=== PATIENT | male | born 1970 ===

== ENCOUNTER 2021-02-06 07:39 | Inpatient (IN) ==
[2021-02-06] MEDS ORDERED: Norepinephrine 16MCG/ML IVPRE 4,000 MCG/250 ML BAG IV ONE (07:42)
[2021-02-06] MEDS ORDERED: Morphine 2 MG/ML SYRINGE IV ONE (07:44)
[2021-02-06] MEDS ORDERED: Morphine 2 MG/ML SYRINGE ONE (07:44)
[2021-02-06] MEDS ORDERED: NS 0.9% 1000 ml BAG 1,000 ML IV ONE (07:44)
[2021-02-06] MEDS ORDERED: Heparin - STEMI 5,000 UNITS/ML 1 ml VIAL IV ONE ×2 (07:44→07:45)
[2021-02-06] MEDS ORDERED: Heparin DRIP 25,000 UNITS BAG 25,000 UNITS/500 ML BAG ONE (07:45)
[2021-02-06] MEDS ORDERED: fentaNYL 100 mcg/2 ml 50 MCG/ML VIAL ONE ×2 (07:50→10:17)
[2021-02-06] MEDS ORDERED: Heparin 2 UNITS/ML 1000 mls IV ONE (07:50)
[2021-02-06] MEDS ORDERED: nitroGLYCERIN DRIP 100 MCG/ML 250 ML BTL ONE (07:50)
[2021-02-06] MEDS ORDERED: Heparin 1,000 UNIT/ML 10 ml (10,000 UNITS) CATHLAB/DIALYSIS ONE ×2 (07:50)
[2021-02-06] MEDS ORDERED: Lidocaine 1% VIAL 10 MG/ML VIAL ONE (07:50)
[2021-02-06] MEDS ORDERED: niCARdipine 0.1MG/ML 200 ML IVPREMIX IV ONE (07:50)
[2021-02-06] MEDS ORDERED: Midazolam 5 mg/5 ml VIAL 1 mg/ml 5 ml VIAL (5 mg) ONE (07:50)
[2021-02-06] MEDS ORDERED: Iohexol 350 (CONTRAST) 200 ML MDV IV ONE (07:50)
[2021-02-06] MEDS ORDERED: Morphine 4 MG/ML VIAL (1 ml) IV ONE (08:00)
[2021-02-06] MEDS ORDERED: Heparin 5000 UNITS/ML 1 mL VIAL IV SCH (08:00)
[2021-02-06] MEDS ORDERED: Norepinephrine 16MCG/ML IVPRE 4,000 MCG/250 ML BAG IV SCH (08:00)
[2021-02-06] MEDS ORDERED: Heparin DRIP 25,000 UNITS BAG 25,000 UNITS/500 ML BAG IV SCH (08:00)
[2021-02-06 08:07] LABS: ABS Monocytes 0.5 10^3/ul (0-0.8); ABS Neutrophils 8.7 10^3/ul (1.5-7.7); Eosinophil % 0.1 %; Hematocrit 30 % (42-52); Hemoglobin 9.9 g/dL (14.0-18.0); Mean Corpuscular HGB Conc 33 g/dL (31-36); Mean Corpuscular Hemoglobin 25 pg (27-31); Mean Corpuscular Volume 77 fL (80-94); Platelet Count 210 10^3/uL (150-450); Red Blood Count 3.93 10^6 /uL (4.18-5.48); Red Cell Distribution Width 14 % (10-15); White Blood Count 11.3 10^3/uL (3.5-10.8)
[2021-02-06 08:26] LABS: Rapid COVID-19 Molecular Undetected (Undetected)
[2021-02-06 08:27] LABS: ALT 22 U/L (7-52); AST 26 U/L (13-39); Albumin 2.9 g/dL (3.2-5.2); Albumin/Globulin Ratio 1.3 (1-3); Alkaline Phosphatase 38 U/L (35-149); Anion Gap 7 mmol/L (2-11); Blood Urea Nitrogen 13 mg/dL (6-24); CO2 Carbon Dioxide 21 mmol/L (22-32); Calcium 6.9 mg/dL (8.6-10.3); Chloride 110 mmol/L (101-111); Globulin 2.3 g/dL (2-4); Glucose 235 mg/dL (70-100); LDL Cholesterol Direct 83 mg/dL; Magnesium 1.1 mg/dL (1.9-2.7); Potassium 3.4 mmol/L (3.5-5.0); Sodium 138 mmol/L (135-145); Total Protein 5.2 g/dL (6.4-8.9); eGFR CKD-EPI 106.9 (>60)
[2021-02-06 08:35] LABS: Troponin I 0.59 ng/mL (<0.03)
[2021-02-06 09:05] LABS: INR 1.14 (0.86-1.15)
[2021-02-06 09:07] LABS: Activated Partial Thrombo Time 159.4 seconds (26.0-38.0)
[2021-02-06] MEDS ORDERED: Heparin 2 UNITS/ML 1000 mls 1,000 ML IV ONE (09:39)
[2021-02-06 09:46] LABS: Venous Bicarbonate HCO3 20.9 mmol/L (24-28)
[2021-02-06 09:47] LABS: PCO2 Arterial 41 mmHg (35-45); PO2 Arterial 73 mmHg (80-100)
[2021-02-06] MEDS ORDERED: Ondansetron 4 mg VIAL 2 MG/ML 2 ml VIAL IV PRN (10:32)
[2021-02-06 11:10] LABS: Cholesterol 125 mg/dL; HDL Cholesterol 27.7 mg/dL; LDL Cholesterol 76 mg/dL; Triglycerides 107 mg/dL
[2021-02-06] MEDS ORDERED: Eptifibatide IV (Load dose) 2 MG/ML 10 ml VIAL ONE ×2 (11:41)
[2021-02-06 12:33] LABS: Urine Appearance Clear; Urine Bilirubin Negative (Negative); Urine Blood 2+ (Negative); Urine Color Straw; Urine Glucose 3+(>=500 mg/dL) (Negative); Urine Ketones Trace (Negative); Urine Nitrite Negative (Negative); Urine Protein Negative (Negative); Urine Urobilinogen Negative (Negative)
[2021-02-06 12:51] LABS: Urine Bacteria Absent (Absent); Urine Red Blood Cell 2+(6-10/hpf) (Absent); Urine White Blood Cell Absent (Absent)
[2021-02-06 12:53] LABS: Urine Specific Gravity > 1.060 (1.002-1.030)
[2021-02-06 21:24] LABS: ABS Lymphocytes 2.1 10^3/ul (1.0-4.8); ABS Monocytes 1.2 10^3/ul (0-0.8); ABS Neutrophils 8.8 10^3/ul (1.5-7.7); Hematocrit 34 % (42-52); Lymphocyte % 17.1 %; Mean Corpuscular HGB Conc 33 g/dL (31-36); Mean Corpuscular Hemoglobin 25 pg (27-31); Mean Corpuscular Volume 76 fL (80-94); Mean Platelet Volume 9.1 fL (7.4-10.4); Platelet Count 191 10^3/uL (150-450); Red Cell Distribution Width 14 % (10-15)
[2021-02-06 21:39] LABS: Anion Gap 9 mmol/L (2-11); Blood Urea Nitrogen 21 mg/dL (6-24); CO2 Carbon Dioxide 23 mmol/L (22-32); Calcium 7.9 mg/dL (8.6-10.3); Chloride 101 mmol/L (101-111); Glucose 238 mg/dL (70-100); Potassium 4.2 mmol/L (3.5-5.0); Sodium 133 mmol/L (135-145); eGFR CKD-EPI 76.4 (>60)
[2021-02-06] MEDS: Al Hydrox/Mg Hydrox/Simet LIQ 30 ML UDC PO PRN (22:03)
[2021-02-06 22:08] LABS: Troponin I > 79.00 ng/mL (<0.03)
[2021-02-07] MEDS: Al Hydrox/Mg Hydrox/Simet LIQ 30 ML UDC PO PRN (03:28)
[2021-02-07 05:49] LABS: ABS Lymphocytes 2.2 10^3/ul (1.0-4.8); ABS Monocytes 1.4 10^3/ul (0-0.8); ABS Neutrophils 8.5 10^3/ul (1.5-7.7); Hematocrit 31 % (42-52); Hemoglobin 10.3 g/dL (14.0-18.0); Lymphocyte % 18.4 %; Mean Corpuscular HGB Conc 33 g/dL (31-36); Mean Corpuscular Hemoglobin 25 pg (27-31); Mean Corpuscular Volume 76 fL (80-94); Mean Platelet Volume 9.1 fL (7.4-10.4); Platelet Count 171 10^3/uL (150-450); Red Blood Count 4.07 10^6 /uL (4.18-5.48); Red Cell Distribution Width 14 % (10-15); White Blood Count 12.1 10^3/uL (3.5-10.8)
[2021-02-07 06:31] LABS: ALT 80 U/L (7-52); AST 275 U/L (13-39); Albumin 3.2 g/dL (3.2-5.2); Albumin/Globulin Ratio 1.1 (1-3); Alkaline Phosphatase 45 U/L (35-149); Anion Gap 6 mmol/L (2-11); Blood Urea Nitrogen 23 mg/dL (6-24); CO2 Carbon Dioxide 26 mmol/L (22-32); Calcium 8.1 mg/dL (8.6-10.3); Chloride 100 mmol/L (101-111); Globulin 2.9 g/dL (2-4); Glucose 259 mg/dL (70-100); Potassium 3.9 mmol/L (3.5-5.0); Sodium 132 mmol/L (135-145); Total Protein 6.1 g/dL (6.4-8.9); eGFR CKD-EPI 76.4 (>60)
[2021-02-07 07:27] LABS: Magnesium 1.7 mg/dL (1.9-2.7)
[2021-02-07] MEDS ORDERED: Potassium Chlor 20 meq TAB.ER PO ONE (07:30)
[2021-02-07] MEDS ORDERED: Magnesium Sulfate 2 gm BAG 2 GM/50 ML BAG IVPB ONE (07:30)
[2021-02-07] MEDS ORDERED: Dextrose 50% Syringe 50 ml 25 GM/50 ML SYRINGE IV PUSH PRN ×2 (08:36→18:17)
[2021-02-07] MEDS ORDERED: Midazolam 2 mg/2 ml VIAL 1 mg/ml 2 ml VIAL (2 mg) ONE (11:03)
[2021-02-07] MEDS ORDERED: fentaNYL 100 mcg/2 ml 50 MCG/ML VIAL ONE (11:03)
[2021-02-07 11:54] LABS: Troponin I > 80.00 ng/mL (<0.03)
[2021-02-07] MEDS: Insulin GLARGINE 100 un/ml 10 ml VIAL SUBCUT SCH ×2 (13:21)
[2021-02-07 18:15] LABS: Hematocrit 33 % (42-52); Hemoglobin 11.1 g/dL (14.0-18.0); Mean Corpuscular HGB Conc 34 g/dL (31-36); Mean Corpuscular Hemoglobin 26 pg (27-31); Mean Corpuscular Volume 76 fL (80-94); Mean Platelet Volume 9.3 fL (7.4-10.4); Platelet Count 164 10^3/uL (150-450); Red Blood Count 4.28 10^6 /uL (4.18-5.48); Red Cell Distribution Width 14 % (10-15)
[2021-02-07] MEDS ORDERED: Piperacillin/Tazobac ADVAN 3.375 GM in NS 0.9% 100 ml BAG 100 ML IV ONE (18:30)
[2021-02-07 18:57] LABS: Albumin 3.4 g/dL (3.2-5.2); Albumin/Globulin Ratio 1.1 (1-3); Calcium 8.1 mg/dL (8.6-10.3); Direct Bilirubin 0.2 mg/dL (0.03-0.18); Indirect Bilirubin 0.6 mg/dL (0.3-1.0); Potassium 4.3 mmol/L (3.5-5.0); Total Bilirubin 0.8 mg/dL (0.2-1.0); Total Protein 6.4 g/dL (6.4-8.9)
[2021-02-07] MEDS ORDERED: Zosyn per Pharmacy NOTE FOLLOW UP SCH (19:00)
[2021-02-07] MEDS: Enoxaparin 40 MG/0.4 ML SYR SUBCUT SCH (19:53)
[2021-02-07] MEDS ORDERED: Diltiazem IV push/loading dose 5 MG/ML 5 ML vial (25 mg) IV SLOW PU ONE (23:12)
[2021-02-08] MEDS ORDERED: Diltiazem IV push/loading dose 5 MG/ML 5 ML vial (25 mg) IV SLOW PU ONE (00:24)
[2021-02-08] MEDS: ZOSYN 3.375 GM Q8H per EXTENDED INFUSION IV SCH ×4 (00:41→23:59)
[2021-02-08 05:51] LABS: Hematocrit 29 % (42-52); Mean Corpuscular HGB Conc 34 g/dL (31-36); Mean Corpuscular Hemoglobin 26 pg (27-31); Mean Corpuscular Volume 76 fL (80-94); Mean Platelet Volume 9.4 fL (7.4-10.4); Platelet Count 152 10^3/uL (150-450); Red Blood Count 3.85 10^6 /uL (4.18-5.48); Red Cell Distribution Width 14 % (10-15); White Blood Count 9.4 10^3/uL (3.5-10.8)
[2021-02-08 06:09] LABS: Calcium 7.9 mg/dL (8.6-10.3); Magnesium 2.1 mg/dL (1.9-2.7); Potassium 3.9 mmol/L (3.5-5.0); eGFR CKD-EPI 73.4 (>60)
[2021-02-08 08:05] LABS: Albumin 3.1 g/dL (3.2-5.2); Direct Bilirubin 0.7 mg/dL (0.03-0.18); Indirect Bilirubin 0.9 mg/dL (0.3-1.0); Total Bilirubin 1.6 mg/dL (0.2-1.0); Total Protein 6.1 g/dL (6.4-8.9)
[2021-02-08 10:10] LABS: Influenza A Molecular Negative (Negative); Influenza B Molecular Negative (Negative)
[2021-02-08] MEDS: Senna TAB 8.6 mg TAB PO SCH ×2 (10:19→20:56)
[2021-02-08] MEDS: Insulin GLARGINE 100 un/ml 10 ml VIAL SUBCUT SCH (10:19)
[2021-02-08 13:33] LABS: C Reactive Protein 133.37 mg/L (<8.01)
[2021-02-08] MEDS ORDERED: Furosemide 40 mg/4 ml IV VIAL IV ONE (13:57)
[2021-02-08 16:45] LABS: Hematocrit 31 % (42-52); Hemoglobin 10.3 g/dL (14.0-18.0); Mean Corpuscular HGB Conc 34 g/dL (31-36); Mean Corpuscular Hemoglobin 26 pg (27-31); Mean Corpuscular Volume 76 fL (80-94); Mean Platelet Volume 9.6 fL (7.4-10.4); Platelet Count 154 10^3/uL (150-450); Red Blood Count 4.05 10^6 /uL (4.18-5.48); Red Cell Distribution Width 14 % (10-15); White Blood Count 8.7 10^3/uL (3.5-10.8)
[2021-02-08 16:59] LABS: Calcium 8.5 mg/dL (8.6-10.3); Potassium 3.7 mmol/L (3.5-5.0); eGFR CKD-EPI 69.3 (>60)
[2021-02-08 17:30] LABS: Hepatitis B Surface Antigen Nonreactive (Nonreactive)
[2021-02-08 17:48] LABS: Hepatitis C Antibody Negative (Negative)
[2021-02-08] MEDS: Enoxaparin 40 MG/0.4 ML SYR SUBCUT SCH (20:56)
[2021-02-09 06:27] LABS: Hematocrit 29 % (42-52); Hemoglobin 10.1 g/dL (14.0-18.0); Mean Corpuscular HGB Conc 35 g/dL (31-36); Mean Corpuscular Hemoglobin 26 pg (27-31); Mean Corpuscular Volume 76 fL (80-94); Mean Platelet Volume 9.6 fL (7.4-10.4); Platelet Count 148 10^3/uL (150-450); Red Blood Count 3.85 10^6 /uL (4.18-5.48); Red Cell Distribution Width 14 % (10-15); White Blood Count 10.3 10^3/uL (3.5-10.8)
[2021-02-09 06:45] LABS: C Reactive Protein 105.24 mg/L (<8.01); Calcium 8.3 mg/dL (8.6-10.3); Magnesium 1.8 mg/dL (1.9-2.7); Potassium 3.9 mmol/L (3.5-5.0); eGFR CKD-EPI 77.2 (>60)
[2021-02-09] MEDS: ZOSYN 3.375 GM Q8H per EXTENDED INFUSION IV SCH ×2 (09:05→16:05)
[2021-02-09] MEDS: Senna TAB 8.6 mg TAB PO SCH ×2 (09:06→21:03)
[2021-02-09] MEDS: Insulin GLARGINE 100 un/ml 10 ml VIAL SUBCUT SCH (09:07)
[2021-02-09] MEDS ORDERED: Magnesium Sulfate 2 gm BAG 2 GM/50 ML BAG IVPB ONE (13:55)
[2021-02-09] MEDS ORDERED: Potassium Chlor 20 meq TAB.ER PO ONE (13:55)
[2021-02-10] MEDS: ZOSYN 3.375 GM Q8H per EXTENDED INFUSION IV SCH ×4 (00:11→23:26)
[2021-02-10 06:55] LABS: ABS Eosinophils 0.2 10^3/ul (0-0.6); ABS Lymphocytes 2.8 10^3/ul (1.0-4.8); ABS Monocytes 1.2 10^3/ul (0-0.8); ABS Neutrophils 4.4 10^3/ul (1.5-7.7); Hematocrit 30 % (42-52); Hemoglobin 10.1 g/dL (14.0-18.0); Lymphocyte % 32.8 %; Mean Corpuscular HGB Conc 34 g/dL (31-36); Mean Corpuscular Hemoglobin 26 pg (27-31); Mean Corpuscular Volume 76 fL (80-94); Mean Platelet Volume 9.6 fL (7.4-10.4); Platelet Count 173 10^3/uL (150-450); Red Blood Count 3.88 10^6 /uL (4.18-5.48); Red Cell Distribution Width 14 % (10-15); White Blood Count 8.6 10^3/uL (3.5-10.8)
[2021-02-10 07:14] LABS: Calcium 8.3 mg/dL (8.6-10.3); Potassium 4.1 mmol/L (3.5-5.0)
[2021-02-10] MEDS: Insulin GLARGINE 100 un/ml 10 ml VIAL SUBCUT SCH (08:39)
[2021-02-10 11:15] LABS: Albumin 3.3 g/dL (3.2-5.2); Direct Bilirubin 0.3 mg/dL (0.03-0.18); Globulin 3.3 g/dL (2-4); Indirect Bilirubin 0.7 mg/dL (0.3-1.0); Total Protein 6.6 g/dL (6.4-8.9)
[2021-02-10 16:34] LABS: Ferritin 104.5 ng/mL (24-336)
[2021-02-11] MEDS: Al Hydrox/Mg Hydrox/Simet LIQ 30 ML UDC PO PRN (02:00)
[2021-02-11 06:32] LABS: Albumin 3.6 g/dL (3.2-5.2); Albumin/Globulin Ratio 0.9 (1-3); Calcium 9.1 mg/dL (8.6-10.3); Potassium 4.4 mmol/L (3.5-5.0); Total Bilirubin 0.9 mg/dL (0.2-1.0); Total Protein 7.6 g/dL (6.4-8.9); eGFR CKD-EPI 80.5 (>60)
[2021-02-11] MEDS: ZOSYN 3.375 GM Q8H per EXTENDED INFUSION IV SCH ×2 (08:37→15:59)
[2021-02-11] MEDS: Insulin GLARGINE 100 un/ml 10 ml VIAL SUBCUT SCH (08:40)
[2021-02-11 15:39] LABS: C Reactive Protein 61.81 mg/L (<8.01)
[2021-02-12] MEDS: ZOSYN 3.375 GM Q8H per EXTENDED INFUSION IV SCH ×4 (00:36→23:44)
[2021-02-12 07:28] LABS: ABS Eosinophils 0.3 10^3/ul (0-0.6); ABS Lymphocytes 2.7 10^3/ul (1.0-4.8); ABS Monocytes 1.2 10^3/ul (0-0.8); ABS Neutrophils 5.7 10^3/ul (1.5-7.7); Eosinophil % 2.6 %; Hematocrit 32 % (42-52); Hemoglobin 10.6 g/dL (14.0-18.0); Lymphocyte % 27.7 %; Mean Corpuscular HGB Conc 33 g/dL (31-36); Mean Corpuscular Hemoglobin 26 pg (27-31); Mean Corpuscular Volume 77 fL (80-94); Mean Platelet Volume 9.9 fL (7.4-10.4); Platelet Count 260 10^3/uL (150-450); Red Blood Count 4.12 10^6 /uL (4.18-5.48); Red Cell Distribution Width 15 % (10-15); White Blood Count 9.9 10^3/uL (3.5-10.8)
[2021-02-12 07:41] LABS: Potassium 4.3 mmol/L (3.5-5.0); eGFR CKD-EPI 80.5 (>60)
[2021-02-12] MEDS: Insulin GLARGINE 100 un/ml 10 ml VIAL SUBCUT SCH (09:54)
[2021-02-12 09:56] LABS: Albumin 3.5 g/dL (3.2-5.2); Albumin/Globulin Ratio 0.9 (1-3); Direct Bilirubin 0.2 mg/dL (0.03-0.18); Indirect Bilirubin 0.5 mg/dL (0.3-1.0); Total Bilirubin 0.7 mg/dL (0.2-1.0); Total Protein 7.5 g/dL (6.4-8.9)
[2021-02-13 06:44] LABS: ABS Basophils 0.1 10^3/ul (0-0.2); ABS Eosinophils 0.3 10^3/ul (0-0.6); ABS Lymphocytes 2.5 10^3/ul (1.0-4.8); ABS Monocytes 1.2 10^3/ul (0-0.8); ABS Neutrophils 5.6 10^3/ul (1.5-7.7); Hematocrit 31 % (42-52); Hemoglobin 10.3 g/dL (14.0-18.0); Lymphocyte % 25.8 %; Mean Corpuscular HGB Conc 34 g/dL (31-36); Mean Corpuscular Hemoglobin 26 pg (27-31); Mean Corpuscular Volume 77 fL (80-94); Mean Platelet Volume 9.5 fL (7.4-10.4); Platelet Count 304 10^3/uL (150-450); Red Cell Distribution Width 14 % (10-15); White Blood Count 9.6 10^3/uL (3.5-10.8)
[2021-02-13 07:04] LABS: Albumin 3.5 g/dL (3.2-5.2); Albumin/Globulin Ratio 0.9 (1-3); Calcium 8.9 mg/dL (8.6-10.3); Globulin 3.8 g/dL (2-4); Potassium 4.5 mmol/L (3.5-5.0); Total Bilirubin 0.6 mg/dL (0.2-1.0); Total Protein 7.3 g/dL (6.4-8.9)
[2021-02-13] MEDS: ZOSYN 3.375 GM Q8H per EXTENDED INFUSION IV SCH ×2 (10:28→16:56)
[2021-02-13 10:38] LABS: % Iron Saturation 18 % (14 - 50); Total Iron Binding Capacity 251 mcg/dL (250 - 400)
[2021-02-13] MEDS: Insulin GLARGINE 100 un/ml 10 ml VIAL SUBCUT SCH (11:16)
[2021-02-13 11:57] LABS: Glucose Confirmatory 425 mg/dL (70-100)
[2021-02-14] MEDS: ZOSYN 3.375 GM Q8H per EXTENDED INFUSION IV SCH ×3 (00:36→17:52)
[2021-02-14 07:41] LABS: ABS Eosinophils 0.3 10^3/ul (0-0.6); ABS Lymphocytes 2.1 10^3/ul (1.0-4.8); ABS Monocytes 0.9 10^3/ul (0-0.8); ABS Neutrophils 5.3 10^3/ul (1.5-7.7); Hematocrit 30 % (42-52); Lymphocyte % 24.7 %; Mean Corpuscular HGB Conc 33 g/dL (31-36); Mean Corpuscular Hemoglobin 26 pg (27-31); Mean Corpuscular Volume 78 fL (80-94); Mean Platelet Volume 9.6 fL (7.4-10.4); Platelet Count 354 10^3/uL (150-450); Red Blood Count 3.88 10^6 /uL (4.18-5.48); Red Cell Distribution Width 14 % (10-15); White Blood Count 8.6 10^3/uL (3.5-10.8)
[2021-02-14] MEDS: Insulin GLARGINE 100 un/ml 10 ml VIAL SUBCUT SCH (07:44)
[2021-02-14 07:54] LABS: Potassium 4.3 mmol/L (3.5-5.0); eGFR CKD-EPI 91.2 (>60)
[2021-02-14] MEDS ORDERED: fentaNYL 100 mcg/2 ml 50 MCG/ML VIAL ONE (08:28)
[2021-02-14] MEDS ORDERED: Midazolam 5 mg/5 ml VIAL 1 mg/ml 5 ml VIAL (5 mg) ONE (08:28)
[2021-02-14] MEDS ORDERED: Flumazenil 0.5 mg/5 ml 0.1 MG/ML 5 ml VIAL ONE (08:28)
[2021-02-14] MEDS ORDERED: Naloxone 0.4 mg VIAL 0.4 mg/ml 1 ml VIAL ONE (08:28)
[2021-02-14] MEDS ORDERED: NS 0.9% 500 ml BAG 500 ML IV ONE (12:04)
[2021-02-14] MEDS: cefTRIAXone 2 GM ADDV.VIAL 2 GM in NS 0.9% 100 ml BAG 100 ML IV SCH (17:39)
[2021-02-14 21:35] LABS: Glucose Confirmatory 419 mg/dL (70-100)
[2021-02-14] MEDS ORDERED: Dextrose 50% Syringe 50 ml 25 GM/50 ML SYRINGE IV PUSH PRN (23:43)
[2021-02-15] MEDS: Insulin GLARGINE 100 un/ml 10 ml VIAL SUBCUT SCH (09:00)
[2021-02-15 12:01] VITALS: BP 112/69
[2021-02-15] MEDS: cefTRIAXone 2 GM ADDV.VIAL 2 GM in NS 0.9% 100 ml BAG 100 ML IV SCH (13:54)
[2021-02-16 10:41] LABS: Albumin 2.7 g/dL (3.4-4.7); Albumin/Globulin Ratio 0.67; Gamma Globulin 1.4 g/dL (0.6-1.6); Total Protein(PEP) 6.7 g/dL (6.3 - 7.9)
[2021-02-18 13:37] LABS: Albumin/Globulin Ratio 0.23; Gamma Globulin 0.9 mg/dL; Protein,Total, Random Urine 5 mg/dL
== END 2021-02-15 15:30 | disposition home or self-care (01) | DRG 174 ==
LOC: ED 07:39 → CHICATH 07:52 → SUATTDRO 11:03 → ICU 11:03 → MEDTELE 02-08 18:38
PROVIDERS: ADMIT Internal Medicine; ATTEND Internal Medicine